=== PATIENT | female | born 1985 | race Caucasian/White ===

== ENCOUNTER 2019-06-19 06:11 | Inpatient (IN) | payer OTHER ==
--- NOTE | 2019-06-18 19:34 | P.HPOB ---
History of Present Illness H&P Date: 06/18/19 Chief Complaint: Scheduled primary section with tubal ligation This is a 33 y.o. female 2, para 1, with an estimated date of confinement of 06/18/2019, estimated gestational age of 40-1/7 weeks, who presents for scheduled primary section with bilateral partial salpingectomy due to transverse lie and polyhydramnios. She admits to good movement and irregular contractions. has been complicated by hyperemesis and dizziness. She was diagnosed with polyhydramnios at 35 weeks and has been getting twice weekly NSTs. Labs: Hepatitis B surface antigen-neg RPR-NR Rubella-immune Blood type-O+ Antibody screen-neg HIV-NR Hemoglobin-12.6 Quad-neg Random glucose-79 1 hr. GTT-136 3 hr. GTT-within normal limits GBS-positive OB Hx: . Hx of 1 vaginal delivery at 41 weeks. 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 Review of Systems Constitutional: Denies chills, Denies fever Eyes: denies blurred vision, denies pain Ears, nose, mouth and throat: Reports headache (occ), Denies sore throat Cardiovascular: Denies chest pain, Denies shortness of breath Gastrointestinal: Reports abdominal pain (irregular ctxs) Genitourinary: Reports pelvic pain, Reports , Denies dysuria, Denies hematuria Musculoskeletal: Reports low back pain Integumentary: Denies pruritus, Denies rash Neurological: Denies numbness, Denies weakness Psychiatric: Denies anxiety, Denies depression Past Medical History Past Medical History: No Reported History History of Any Multi-Drug Resistant Organisms: None Reported Past Surgical History: No Surgical Hx Reported Past Anesthesia/Blood Transfusion Reactions: No Reported Reaction Past Psychological History: No Psychological Hx Reported Smoking Status: Never smoker Past Alcohol Use History: None Reported Past Drug Use History: None Reported - Past Family History Mother Family Medical History: Hyperlipidemia Medications and Allergies Home Medications Medication Instructions Recorded Confirmed Type No Known Home Medications 06/19/19 06/19/19 History Allergies Allergy/AdvReac Type Severity Reaction Status Date / Time Penicillins AdvReac Unknown Verified 06/19/19 06:28 Exam Osteopathic Statement: *. No significant issues noted on an osteopathic structural exam other than those noted in the History and Physical/Consult. HEENT: within normal limits Heart: regular rate and rhythm Lungs: clear to auscultation bilaterally Abdomen: Cervix: closed/50%/-3 heart tones: 140s by doppler Extremities: neg. Homans Results Result Diagrams: 06/19/19 06:30 Assessment and Plan (1) 40 weeks gestation of Current Visit: No Status: Acute Code(s): Z3A.40 - 40 WEEKS GESTATION OF SNOMED Code(s): 18732265 (2) Transverse lie of fetus Current Visit: No Status: Acute Code(s): O32.2XX0 - MATERNAL CARE FOR TRANSVERSE AND OBLIQUE LIE, UNSP SNOMED Code(s): 34257990 (3) Family planning Current Visit: No Status: Acute Code(s): Z30.09 - ENCOUNTER FOR OT GENERAL CNSL AND ADVICE ON CONTRACEPTION SNOMED Code(s): 134828547 Plan: Proceed with primary section with bilateral partial salpingectomy. I have discussed the risks, benefits, and alternative therapies for the above- mentioned procedure and for both sedation/anesthesia as well as necessary blood products administration, if indicated, as they pertain to this patient. The patient has indicated her understanding and acceptance of the risks and procedures discussed.
[2019-06-19] MEDS ORDERED: CITRIC ACID-SODIUM CITRATE 15 ML CUP PO ONE (06:28)
[2019-06-19] MEDS ORDERED: LIDOCAINE 1% 20 ML VIAL (10MG/ML) FOR IV START INTRADERMA PRN (06:28)
[2019-06-19] MEDS ORDERED: LACTATED RINGERS 1,000 ML IV ONE (06:28)
[2019-06-19 06:47] LABS: Basophils # (A) 0.1 k/uL (0-0.2); Basophils % (A) 1 %; Eosinophils # (A) 0.2 k/uL (0-0.7); Eosinophils % (A) 1 %; HCT 35.1 % (34.0-46.0); HGB 11.5 gm/dL (11.4-16.0); Hypochromasia Moderate; Lymphocytes # (A) 2.8 k/uL (1.0-4.8); Lymphocytes % (A) 20 %; MCHC 32.7 g/dL (31.0-37.0); MCV 82.6 fL (80.0-100.0); Mean Platelet Volume 10.4; Monocytes # (A) 0.9 k/uL (0-1.0); Monocytes % (A) 6 %; Neutrophils % (A) 71 %; Platelet Count 296 k/uL (150-450); RBC 4.25 m/uL (3.80-5.40); RDW 14.5 % (11.5-15.5); WBC 14.1 k/uL (3.8-10.6)
[2019-06-19] MEDS ORDERED: fentaNYL (PF) 50 MCG/ML 2 ML AMP ONE (07:49)
[2019-06-19] MEDS ORDERED: MORPHINE SULFATE (PF) 0.3 MG/0.3 ML SYR ONE (07:49)
[2019-06-19] MEDS ORDERED: ePHEDrine SULFATE/0.9% NACL/PF 50 MG/5 ML SYRINGE IV ONE (07:49)
[2019-06-19] MEDS ORDERED: PHENYLEPHRINE-0.9% NACL SYG 1 MG/10 ML SYRINGE ONE (07:49)
[2019-06-19] MEDS ORDERED: ONDANSETRON 4 MG/2 ML VIAL ONE (07:49)
[2019-06-19] MEDS ORDERED: KETOROLAC 30 MG/ML 1 ML VIAL ONE (07:49)
[2019-06-19] MEDS ORDERED: OXYTOCIN 10 UNIT/ML 1 ML VIAL ONE (07:49)
--- NOTE | 2019-06-19 08:42 | P.OP ---
Date of Procedure: 06/19/19 Preoperative Diagnosis: 1. Intrauterine at 40 and one sevenths weeks. 2. Transverse lie. 3. Polyhydramnios. 4. Family planning Postoperative Diagnosis: Intrauterine at 40 and one sevenths weeks Polyhydramnios Family planning Procedure(s) Performed: Primary low transverse section Bilateral partial salpingectomy Anesthesia: spinal (Duramorph) Surgeon: Cynthia Barragan Structural Engineering Project Manager #1: Shawn Avila Estimated Blood Loss (ml): 500 Pathology: other (Placenta and portions of right and left fallopian tubes) Condition: stable Disposition: floor Indications for Procedure: This is a 33-year-old female 2 para 1 with an estimated date of confinement of 40 and one sevenths weeks who presents for scheduled primary section secondary to transverse lie and polyhydramnios. I have discussed the risks, benefits, and alternative therapies for the above- mentioned procedure and for both sedation/anesthesia as well as necessary blood products administration, if indicated, as they pertain to this patient. The patient has indicated her understanding and acceptance of the risks and procedures discussed. Operative Findings: A viable female is noted in the vertex presentation with scores of 8 at 1 minute and 9 at 5 minutes and infant weight of 9 lbs. 2 oz. A true knot is noted in the cord. Normal uterus tubes and ovaries are noted. Description of Procedure: The patient is taken to the operating room where she is placed in the dorsal supine position with leftward tilt after spinal Duramorph anesthesia is given. She is prepped and draped in the normal sterile fashion. Skin was tested and found to be adequately anesthetized. A Pfannenstiel skin incision was made with a scalpel. A second knife was used to carry the incision down to the underlying layer of fascia. The fascia was nicked in the midline with a scalpel and then extended laterally bilaterally with Sanchez scissors. The anterior lip of the fascia was grasped with 2 Irma clamps and then dissected off the underlying rectus muscle in the midline with Sanchez scissors. The inferior aspect of the fascial incision was grasped with 2 Irma clamps and dissected off the underlying rectus muscle and the midline with Sanchez scissors. Next the peritoneum layer was tented up with 2 hemostats and then entered sharply with the scalpel. The incision is extended superiorly and inferiorly with Metzenbaum scissors. Next a DeLee retractor is placed. The vesicouterine peritoneum is entered sharply with Metzenbaum scissors and extended laterally bilaterally with Metzenbaum scissors and then the bladder flap is pushed inferiorly. The lower uterine segment is incised in transverse fashion with the scalpel and then bluntly entered with a hemostat. Clear fluid is noted. The incision was then extended laterally bilaterally with 2 fingers. Next the infant's head is delivered through the incision. Nose and mouth are bulb suctioned. The remainder of the is easily delivered and placed on mother's abdomen. Cord is clamped and cut. is taken to warmer by nursing staff. A true knot is noted in the cord. Uterine fundus is gently massaged and placenta is delivered manually. Uterus is exteriorized and cleared of all clots and debris. Uterine incision is closed with 0 Vicryl suture in a running locked fashion. A second layer of 0 Vicryl suture is used in a running fashion for hemostasis. Once adequate hemostasis as assured, the vesicouterine peritoneum is reapproximated with 2-0 Vicryl suture in a running fashion. Next attention is turned to the tubes. The right fallopian tube is grasped in the midportion with a hemostat. The mesosalpinx is entered with Bovie cautery. 0 Vicryl suture is tied 2 times around both the proximal and distal portion of the tube. The knuckle of tube was then removed with Metzenbaum scissors. The ends of the tube were cauterized with Bovie cautery. Excellent hemostasis is noted. The same procedure is carried out on the left fallopian tube. Posterior cul-de-sac is suctioned of all clots and debris. Uterus is returned to the abdomen. Incision is noted to be hemostatic. Both tubal sites are visualized and appear to be hemostatic. Peritoneal layer is closed with 0 Vicryl suture in a running fashion. Muscle layer is reapproximated with 0 Vicryl suture in interrupted fashion. Fascia layer is then closed with 0 PDS suture with 2 sutures meeting in the midline and the knots buried in either side and in the midline. The subcutaneous tissue was then closed with 2-0 Vicryl suture. Skin layer was then closed with ba. All sponge and needle counts are correct. The patient is taken to recovery room in stable condition.
[2019-06-19] MEDS ORDERED: HYDROcodone/APAP 7.5-325MG 1 EACH TAB PO PRN (08:44)
[2019-06-19] MEDS ORDERED: ZOLPIDEM 5 MG TAB PO PRN (08:44)
[2019-06-19] MEDS ORDERED: SIMETHICONE 80 MG CHEWABLE PO PRN (08:44)
[2019-06-19] MEDS ORDERED: diphenhydrAMINE 25 MG CAP PO PRN (08:44)
[2019-06-19] MEDS ORDERED: NALOXONE 0.4 MG/ML 1 ML VIAL IV PRN ×2 (08:44→10:12)
[2019-06-19] MEDS ORDERED: ACETAMINOPHEN TAB 325 MG TAB PO PRN (08:44)
[2019-06-19] MEDS ORDERED: ONDANSETRON 4 MG/2 ML VIAL IVP PRN (08:44)
[2019-06-19] MEDS ORDERED: diphenhydrAMINE 50 MG/ML 1 ML VIAL IVP PRN ×2 (08:44)
[2019-06-19] MEDS ORDERED: LANOLIN CREAM 5 GM TUBE TOPICAL PRN (08:44)
[2019-06-19] MEDS ORDERED: diphenhydrAMINE 50 MG CAP PO PRN (08:44)
[2019-06-19] MEDS ORDERED: METOCLOPRAMIDE 5 MG/ML 2 ML VIAL IVP PRN (08:44)
[2019-06-19] MEDS ORDERED: KETOROLAC 30 MG/ML 1 ML VIAL IVP PRN (10:12)
[2019-06-19] MEDS ORDERED: NALBUPHINE 10 MG/ML (1 ML AMP) IV PRN (10:12)
[2019-06-19] MEDS ORDERED: MORPHINE SULFATE 4 MG/ML SYRINGE IVP PRN (10:12)
[2019-06-19 14:34] VITALS: RESP 16
[2019-06-19] MEDS: SENNOSIDES-DOCUSATE SODIUM 1 EACH TAB PO SCH ×3 (14:55→20:27)
[2019-06-19] MEDS: LACTATED RINGERS 1,000 ML IV SCH ×2 (14:56→23:48)
[2019-06-19] MEDS: KETOROLAC 30 MG/ML 1 ML VIAL IVP PRN (20:19)
[2019-06-20] MEDS: KETOROLAC 30 MG/ML 1 ML VIAL IVP PRN ×2 (02:18→08:32)
[2019-06-20 07:24] LABS: Basophils # (A) 0.1 k/uL (0-0.2); Basophils % (A) 0 %; Eosinophils # (A) 0.1 k/uL (0-0.7); Eosinophils % (A) 1 %; HCT 32.4 % (34.0-46.0); HGB 10.2 gm/dL (11.4-16.0); Hypochromasia Moderate; Lymphocytes # (A) 1.7 k/uL (1.0-4.8); Lymphocytes % (A) 11 %; MCH 26.6 pg (25.0-35.0); MCHC 31.6 g/dL (31.0-37.0); MCV 84.3 fL (80.0-100.0); Mean Platelet Volume 8.2; Monocytes # (A) 0.6 k/uL (0-1.0); Monocytes % (A) 4 %; Neutrophils % (A) 83 %; Platelet Count 244 k/uL (150-450); RBC 3.84 m/uL (3.80-5.40); RDW 14.7 % (11.5-15.5); WBC 15.7 k/uL (3.8-10.6)
[2019-06-20] MEDS: SENNOSIDES-DOCUSATE SODIUM 1 EACH TAB PO SCH ×2 (08:31→21:50)
[2019-06-20] MEDS: LACTATED RINGERS 1,000 ML IV SCH (09:53)
[2019-06-20] MEDS: HYDROcodone/APAP 5-325MG 1 EACH TAB PO PRN ×2 (11:17→17:56)
--- NOTE | 2019-06-20 11:53 | P.PNOBGPC ---
Subjective - Subjective Principal diagnosis: Status post primary section with tubal postoperative day #1 Interval history: Patient is doing well. She is relating. Lochia is decreasing. Her pain is well-controlled. She is breast-feeding. Patient reports: Reports appetite normal, Reports voiding normally, Reports pain well controlled, Reports ambulating normally Landing: doing well, nursing well Objective - Vital Signs Latest vital signs: Vital Signs Temp Pulse Pulse Resp BP Pulse Ox 06/20/19 09:00 16 06/20/19 08:00 98.2 F 59 L 16 97/62 06/20/19 07:00 16 06/20/19 05:00 16 06/20/19 04:00 97.8 F 68 16 92/51 97 06/20/19 03:00 16 06/20/19 01:00 16 06/19/19 23:43 64 16 06/19/19 23:42 98.2 F 64 16 103/62 97 06/19/19 20:00 98 F 71 16 116/69 97 06/19/19 18:00 16 06/19/19 16:00 98.2 F 75 16 122/66 06/19/19 14:33 16 06/19/19 12:00 98 F 63 12 103/64 Intake and Output 06/19/19 06/20/19 06/20/19 22:59 06:59 14:59 Intake Total 100 Output Total 200 1350 Balance -100 -1350 Intake: Oral 100 Output: Urine 200 1350 Straight 550 Uretheral (Landis) 200 Other: # Voids 1 - Exam Extremities: Present: normal, edema (Trace). Absent: tenderness Abdomen: Present: normal appearance, soft (Positive bowel sounds 4). Absent: distention, tenderness Incision: Present: normal, dry, intact. Absent: erythematous Uterus: Present: normal, firm. Absent: tenderness - Labs Labs: Abnormal Lab Results - Last 24 Hours (Table) 06/20/19 Range/Units 06:20 WBC 15.7 H (3.8-10.6) k/uL Hgb 10.2 L (11.4-16.0) gm/dL Hct 32.4 L (34.0-46.0) % Neutrophils # 13.0 H (1.3-7.7) k/uL Assessment and Plan Assessment: Status post primary section with bilateral partial subjective postoperative day #1 (1) 40 weeks gestation of Current Visit: No Status: Acute Code(s): Z3A.40 - 40 WEEKS GESTATION OF SNOMED Code(s): 37829199 (2) Transverse lie of fetus Current Visit: No Status: Acute Code(s): O32.2XX0 - MATERNAL CARE FOR TRANSVERSE AND OBLIQUE LIE, UNSP SNOMED Code(s): 05558895 (3) Family planning Current Visit: No Status: Acute Code(s): Z30.09 - ENCOUNTER FOR OT GENERAL CNSL AND ADVICE ON CONTRACEPTION SNOMED Code(s): 048559406 Plan: Continue with postoperative care today. Advance diet as tolerated. Anticipate possible discharge home tomorrow.
[2019-06-20] MEDS: IBUPROFEN 600 MG TAB PO PRN ×2 (14:57→21:50)
--- NOTE | 2019-06-20 21:35 | P.PN ---
Progress Note - Text Progress Note Date: 06/20/19 33 yo female s/p with duramorph spinal. POD#1. Doing well with no complications. VAS 3-4/10 in severity in abdomen. tolerating diet, ambulating. No motor/sensory deficits.
--- NOTE | 2019-06-21 08:15 | P.DS ---
Providers Date of admission: 06/19/19 06:11 Expected date of discharge: 06/21/19 Attending physician: Cynthia Barragan Primary care physician: Stated None - Discharge Diagnosis(es) (1) 40 weeks gestation of Current Visit: No Status: Acute (2) Transverse lie of fetus Current Visit: No Status: Acute (3) Family planning Current Visit: No Status: Acute Hospital Course: This is a 33-year-old female 2 para 1 with an estimated date of confinement of 06/18/2019, estimated gestational age of 48 and one sevenths weeks, who presented to labor and delivery for scheduled primary section with tubal ligation due to transverse lie and polyhydramnios. She delivered a viable female with scores of 8 at 1 minute and 9 at 5 minutes in the vertex presentation with weight of 9 lbs. 2 oz. Her post operative and course have been essentially uncomplicated. Lochia is decreasing. Pain is well-controlled. She is breast-feeding. She is passing flatus but no bowel movement yet. She is urinating without difficulty. Vital signs are stable area abdomen is soft with positive bowel sounds 4. Incision is clean dry and intact with ba in place. Extremities show negative Homans . Impression is status post Elda a section postoperative day #2. Plan is to discharge home. Routine postoperative and instructions are given. She will be given a prescription for breast pump along with ibuprofen and Preble. She has signed a opioid consent form and was counseled regarding appropriate opioid use. Ba will be removed and Steri-Strips placed prior to discharge. She is advised follow-up in the office in 1 week for a postoperative check and in 6 weeks for a check. She is advised to call the office if she has any further questions or concerns prior to her appointment time. Procedures: Primary low transverse section on 06/19/2019 Patient Condition at Discharge: Stable Plan - Discharge Summary New Discharge Prescriptions: New Ibuprofen [Motrin] 600 mg PO Q6HR PRN #60 tab PRN Reason: Mild Pain Or Fever >= 100.5 HYDROcodone/APAP 7.5-325MG [Preble 7.5-325] 1 each PO Q6H PRN #28 tab PRN Reason: Severe Pain Discharge Medication List HYDROcodone/APAP 7.5-325MG [Preble 7.5-325] 1 each PO Q6H PRN #28 tab 06/21/19 [Rx] Ibuprofen [Motrin] 600 mg PO Q6HR PRN #60 tab 06/21/19 [Rx] Follow up Appointment(s)/Referral(s): Cynthia Barragan DO [Doctor of Osteopathic Medicine] - 1 Week Activity/Diet/Wound Care/Special Instructions: Instructions 1. Do not begin any exercise program for 3 weeks. 2. Do not resume sexual relations for 3 weeks or longer if uncomfortable. 3. You may take tub baths or showers at any time. 4. You may use tampons if desired after 3 weeks. 5. Keep the area of episiotomy (stitches) clean and dry. 6. If you are not nursing, wear a good fitting, supportive bra during the day and limit fluid intake for at least 1 week to prevent breast engorgement. 7. Call the office, [phone], within the next week to make appointment for your 6 week checkup if it has not already been made. 8. Report any of the following occurrences to the doctor promptly: a. Heavy, excessive bleeding b. Chills, fever c. Burning or frequency of urination d. Pain or redness and breasts if nursing e. Increasing pain or swelling in episiotomy (stitches). In addition to the above instructions, the following additional should be followed: 1. No heavy lifting or straining (exercising) until after 6 week checkup. 2. Keep abdominal incision clean and dry: You may wear a dressing if more comfortable. 3. Make office appointment for 10 days after going home or as instructed by her doctor. Discharge Disposition: HOME SELF-CARE
[2019-06-21] MEDS: IBUPROFEN 600 MG TAB PO PRN (08:16)
[2019-06-21] MEDS: SENNOSIDES-DOCUSATE SODIUM 1 EACH TAB PO SCH (08:17)
[2019-06-21 08:26] VITALS: BP 133/74; PULSE 74; TEMP 98.2
== END 2019-06-21 13:50 | disposition home or self-care (01) | DRG 785 ==
LOC: 4FBP 06:11
PROVIDERS: ADMIT Obstetrics & Gynecology; ATTEND Obstetrics & Gynecology
PROC: 0UB70ZZ Excision of Bilateral Fallopian Tubes, Open Approach (ICD-10-PCS; principal; 2019-06-19 08:00)
PROC: 10D00Z1 Extraction of Products of Conception, Low, Open Approach (ICD-10-PCS; principal; 2019-06-19 08:00)
DX: O32.2XX0 Maternal care for transverse and oblique lie, not applicable or unspecified (principal); O40.3XX0 Polyhydramnios, third trimester, not applicable or unspecified; Z37.0 Single live birth; Z3A.40 40 weeks gestation of pregnancy; Z88.0 Allergy status to penicillin; O69.2XX0 Labor and delivery complicated by other cord entanglement, with compression, not applicable or unspecified; Z30.2 Encounter for sterilization
CPT/HCPCS: 85025; 86850; 86900; 86901; 88302; 88307